=== PATIENT | male | born 1960 | race Caucasian/White ===

== ENCOUNTER 2016-10-23 14:44 | Emergency (ER) | payer BC ==
--- NOTE | 2016-10-23 15:18 | EDM.PDOC ---
ED HISTORY OF PRESENT ILLNESS - General Chief Complaint: Fever Stated Complaint: DEHYDRATION, DIARRHEA Time Seen by Provider: 10/23/16 15:01 Source of Information: Reports: Patient History Limitations: Reports: No limitations - History of Present Illness INITIAL COMMENTS - FREE TEXT/NARRATIVE: Patient presents with fever, cough, dyspnea and fatigue. He thinks he may have aspirated fluid while coughing and choking 3 days ago. He also has had some diarrhea but no vomiting. 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 He was in hospital in [place] for a week with cellulitis and osteomyelitis and has been back home for two weeks currently on Ancef via PICC line tid. - Related Data Allergies/ADRs: Allergies Allergy/AdvReac Type Severity Reaction Status Date / Time No Known Drug Allergies Allergy Other Verified 10/21/16 15:29 Home Meds: Home Meds Calcium Carbonate [Tums] 500 mg PO BID 04/10/15 [History] Allopurinol 100 mg PO DAILY 05/27/15 [History] Albuterol [Proventil Neb Soln] 2.5 mg NEB QIDRT PRN 06/24/15 [History] Cholecalciferol (Vitamin D3) [Vitamin D3] 2,000 units PO DAILY 07/29/15 [History ] Denosumab [Xgeva] 120 mg SUBCUT ASDIRECTED 10/23/15 [History] Citalopram [Celexa] 20 mg PO DAILY@1200 09/09/16 [History] levETIRAcetam [Keppra] 500 mg PO BID 09/13/16 [History] Dexamethasone [Dexamethasone] 4 mg PO BID 09/15/16 [History] Omeprazole 20 mg PO ACBREAKFAST 09/15/16 [History] Magnesium Chloride [Mag Delay] 1 tab PO BID 09/27/16 [History] Ondansetron HCl [Zofran] 1 tab PO TID PRN 09/27/16 [History] Prochlorperazine [Compazine] 1 tab PO QID PRN 09/27/16 [History] Rivaroxaban [Xarelto] 20 mg PO WITHBREAKFAST 09/27/16 [History] amLODIPine [Norvasc] 5 mg PO DAILY 09/27/16 [History] Fludrocortisone [Florinef] 1 tab PO DAILY 10/23/16 [History] Heparin Sodium,Porcine/PF [Heparin IV Flush 100 Units/ml] 300 units IV ASDIRECTED PRN 10/23/16 [History] Insulin Aspart [NovoLOG] See Protocol SQ TIDMEALS PRN 10/23/16 [History] Potassium Chloride 10 meq PO TID 10/23/16 [History] ceFAZolin [Ancef] 2 gm IV TID 10/23/16 [History] guaiFENesin/Codeine Phosphate [Guaifenesin AC Cough Syrup] 10 ml PO Q4H PRN [History] hydrALAZINE [Apresoline] 25 mg PO DAILY 10/23/16 [History] Past Medical History HEENT History: Reports: Impaired vision Cardiovascular History: Reports: Blood clots/VTE/DVT, Hypertension Other Cardiovascular History: hypotension Respiratory History: Reports: None Other Respiratory History: HX BLOOD CLOTS AND PNEUMONIA Gastrointestinal History: Reports: None Genitourinary History: Reports: Acute renal failure, Renal disease, Other (see below) Other Genitourinary History: stents placed in Left kidney 2105 Musculoskeletal History: Reports: Fracture, Other (see below) Other Musculoskeletal History: fracture left leg due to cancerous tumor Neurological History: Reports: Headaches, chronic, Other (see below) Other Neuro History: large tumor on posterior lower head - Endocrine/Metabolic History: Reports: Obesity/BMI 30+ Hematologic History: Reports: Anemia, Blood transfusion(s) Immunologic History: Reports: Immunosuppression Oncologic (Cancer) History: Reports: Bone, Brain, Lung, Metastatic, Renal Other Oncologic History: Currently undergoing evaluation for change of therapy perhaps radiation, no longer opdivo anad no current oral chemo at this point - Past Surgical History Head Surgeries/Procedures: Reports: None Cardiovascular Surgical History: Reports: None Respiratory Surgical History: Reports: Lung Biopsies GI Surgical History: Reports: None Male Surgical History: Reports: Ureteral stent Other Male Surgeries/Procedures: Left Kidney stents placed x2 in past several weeks end of June, early 2015 Endocrine Surgical History: Reports: None Neurological Surgical History: Reports: None Musculoskeletal Surgical History: Reports: Other (see below) Other Musculoskeletal Surgeries/Procedures:: left leg cementing in place of where tumor was. recent infection in left lower leg with it being opened and cleaned out - Social & Family History - Family History Family Medical History: Noncontributory - Tobacco Use Smoking Status *Q: Never Smoker Second Hand Smoke Exposure: No - Caffeine Use Caffeine Use: Reports: None - Recreational Drug Use Recreational Drug Use: No ED ROS GENERAL - Review of Systems Review Of Systems: See Below Constitutional: Reports: fever, malaise, weakness, fatigue HEENT: Denies: Throat pain, Vision change Respiratory: Reports: shortness of breath, cough Cardiovascular: Denies: Chest pain, Lightheadedness, Syncope GI/Abdominal: Reports: Diarrhea. Denies: Abdominal pain, Constipation, Vomiting : Denies: discharge, dysuria Musculoskeletal: Reports: no symptoms, other (the left leg is healing nicely after open I and D and wound vac removal.) Skin: Denies: cyanosis, jaundice, mottled, pallor, diaphoresis Neurological: Denies: confusion, dizziness, headache, trouble speaking Psychiatric: Denies: Agitation, Anxiety, Confusion ED EXAM, GENERAL - Physical Exam Exam: See Below Exam Limited By: No limitations General Appearance: alert, WD/WN, no apparent distress Eye Exam: bilateral eye: EOMI, normal inspection, PERRL Ears: normal external exam, hearing grossly normal Ear Exam: right ear: canal normal (left is occluded with cerumen) Nose: normal inspection, no blood Throat/Mouth: Normal inspection, Normal lips, Normal oropharynx, Normal voice, No airway compromise Head: atraumatic, normocephalic Neck: normal inspection, supple, non-tender, full range of motion Respiratory/Chest: no accessory muscle use, decreased breath sounds (mildly in right base), crackles (bilat bases and middle cabrera), wheezing (moderate on right; mild on left). No: stridor Cardiovascular: no edema, no gallop, no JVD, no murmur, tachycardia (regular) GI/Abdominal: no distention Back Exam: full range of motion Extremities: normal range of motion, no pedal edema. No: mottled, pallor, redness Neurological: alert, oriented, normal cognition, no motor/sensory deficits Psychiatric: normal affect, normal mood Skin Exam: Warm, Dry, Intact, Normal color, No rash Course - Vital Signs Last Recorded V/S: Last Vital Signs Temp 101 F H 10/23/16 14:59 Pulse 119 H 10/23/16 14:59 Resp 16 10/23/16 14:59 BP 113/69 10/23/16 14:59 Pulse Ox 95 10/23/16 14:59 - Orders/Labs/Meds Orders: Active Orders 24 hr Category Date Time Status Chest 2V [CR] Stat Exams 10/23/16 15:11 Ordered Chest w Cont [CT] Stat Exams 10/23/16 16:01 Ordered CBC WITH AUTO DIFF [HEME] Stat Lab 10/23/16 15:11 Ordered COMPREHENSIVE METABOLIC PN,CMP [CHEM] Stat Lab 10/23/16 15:11 Ordered CULTURE BLOOD [BC] Stat Lab 10/23/16 15:12 Ordered CULTURE BLOOD [BC] Stat Lab 10/23/16 15:12 Ordered LACTIC ACID [CHEM] Stat Lab 10/23/16 15:11 Ordered Blood Culture x2 Reflex Set [OM.PC] Stat Oth 10/23/16 15:11 Ordered - Re-Assessments/Exams Free Text/Narrative Re-Assessment/Exam: 10/23/16 16:03 CXR report shows more prominent perihilar masses and adenopathy that comparison 6 weeks ago. Atelectasis suggesting possible emboli. Radiologist suggests considering CT. Will wait on kidney function results prior to initiation of dye. 10/23/16 18:54 Had some difficulties with IV access and failures resulting in inadequate IV size for contrast infusion speeds. Radiologist says the test is indeterminate for PE but found right lung infiltrate, 20% increased size of mediastinal lymph node from comparison 3 months ago, now measuring 2 cm in diameter. Discussed this with patient and his family and will transfer to [place] for further evaluation and treatment. Discussed with ER doc at [facility] who felt direct admission to [facility] would be appropriate. Dr. May accepted patient for transfer and they will call with bed placement shortly. Departure - Departure Time of Disposition: 19:08 Disposition: DC/Tfer to Acute Hospital 02 Condition: fair Clinical Impression: HCAP (healthcare-associated pneumonia), Lung cancer, middle lobe, Cancer of brain treated with radiation therapy, Hypoxemia, Brain metastases Dyspnea Qualifiers: Dyspnea type: shortness of breath Qualified Code(s): R06.02 - Shortness of breath Forms: ED Department Discharge - My Orders Last 24 Hours: My Active Orders 10/23/16 15:11 Chest 2V [CR] Stat CBC WITH AUTO DIFF [HEME] Stat COMPREHENSIVE METABOLIC PN,CMP [CHEM] Stat LACTIC ACID [CHEM] Stat Blood Culture x2 Reflex Set [OM.PC] Stat 10/23/16 15:12 CULTURE BLOOD [BC] Stat CULTURE BLOOD [BC] Stat 10/23/16 16:01 Chest w Cont [CT] Stat - Assessment/Plan Last 24 Hours: My Active Orders 10/23/16 15:11 Chest 2V [CR] Stat CBC WITH AUTO DIFF [HEME] Stat COMPREHENSIVE METABOLIC PN,CMP [CHEM] Stat LACTIC ACID [CHEM] Stat Blood Culture x2 Reflex Set [OM.PC] Stat 10/23/16 15:12 CULTURE BLOOD [BC] Stat CULTURE BLOOD [BC] Stat 10/23/16 16:01 Chest w Cont [CT] Stat
[2016-10-23] MEDS ORDERED: Sodium Chloride 0.9% 1,000 ML IV ONE (16:07)
[2016-10-23] MEDS ORDERED: Albuterol 0.083% 2.5 MG/3 ML Neb Soln NEB ONE (16:15)
[2016-10-23 16:35] LABS: CHLORIDE,CL 105 mmol/L (98-115); SODIUM,NA 138 mmol/L (136-145)
[2016-10-23] MEDS ORDERED: Sodium Chloride 0.9% 50 ML SDV IV ONE (16:56)
[2016-10-23] MEDS ORDERED: Iopamidol 755 Mg/ML 75 ML Bottle IV ONE (16:56)
[2016-10-23] MEDS ORDERED: Acetaminophen 325 MG Tab PO ONE (17:47)
[2016-10-23] MEDS ORDERED: Levofloxacin/Dextrose 5%-Water 500 MG in Premix Bag 1 BAG IV ONE (19:02)
[2016-10-23 19:32] VITALS: BP 107/62
[2016-10-25] MEDS ORDERED: Iopamidol 755 Mg/ML 75 ML Bottle IVPUSH ONE (08:14)
[2016-10-25] MEDS ORDERED: Sodium Chloride 0.9% 50 ML SDV FLUSH SCH (08:15)
== END 2016-10-23 19:45 ==
LOC: KA.ED 14:44
DX: J18.9 Pneumonia, unspecified organism (principal); Y95 Nosocomial condition; C34.2 Malignant neoplasm of middle lobe, bronchus or lung; R09.02 Hypoxemia; Z79.899 Other long term (current) drug therapy
CPT/HCPCS: 36415; 71020; 71260; 80053; 83605; 85025; 87040; 94640; 96361; 96365; 99285; J1956; J7030; J7620; Q9967

== ENCOUNTER 2016-11-08 16:05 | Inpatient (IN) | payer BC ==
[2016-11-08] MEDS ORDERED: Albuterol/Ipratropium 3.0-0.5 MG/3 ML Neb Soln NEB ONE (16:43)
--- NOTE | 2016-11-08 16:50 | EDM.PDOC ---
Addendum entered and electronically signed by Mauri Bowers PA 11/08/16 17:27 : ASSESSMENT: PNEUMONIA PLAN: ADMIT TO INPATIENT / DR HUSSEIN'S SERVICE Original Note: ED HISTORY OF PRESENT ILLNESS - General Chief Complaint: Respiratory Problem Stated Complaint: PNEUMONIA Time Seen by Provider: 11/08/16 16:34 Source of Information: Reports: Patient, Family, Nurse First Aid History Limitations: Reports: No limitations - History of Present Illness INITIAL COMMENTS - FREE TEXT/NARRATIVE: PT PRESENTS WITH C/O SOB, PNEUMONIA DIAGNOSED WITH PCP AT [facility] AND DISCHARGED TODAY. BECAME WEAK ON WAY HOME AND FAMILY BROUGHT TO ER. H/O OF BRAIN CA. Timing/Duration: Reports: Day(s):, Getting worse Improves with: Reports: None Worsens with: Reports: None Associated Symptoms (General): Reports: cough, cough w sputum, fever/chills, loss of appetite, malaise, shortness of breath, weakness - Related Data Allergies/ADRs: Allergies Allergy/AdvReac Type Severity Reaction Status Date / Time No Known Drug Allergies Allergy Other Verified 11/08/16 16:19 Home Meds: Home Meds Calcium Carbonate [Tums] 500 mg PO BID 04/10/15 [History] Allopurinol 100 mg PO DAILY 05/27/15 [History] Cholecalciferol (Vitamin D3) [Vitamin D3] 2,000 units PO DAILY 07/29/15 [History ] Citalopram [Celexa] 20 mg PO DAILY@1200 09/09/16 [History] levETIRAcetam [Keppra] 500 mg PO BID 09/13/16 [History] Omeprazole 20 mg PO ACBREAKFAST 09/15/16 [History] Magnesium Chloride [Mag Delay] 1 tab PO BID 09/27/16 [History] Ondansetron HCl [Zofran] 1 tab PO TID PRN 09/27/16 [History] Prochlorperazine [Compazine] 1 tab PO QID PRN 09/27/16 [History] Rivaroxaban [Xarelto] 20 mg PO WITHBREAKFAST 09/27/16 [History] amLODIPine [Norvasc] 5 mg PO DAILY 09/27/16 [History] Fludrocortisone [Florinef] 1 tab PO DAILY 10/23/16 [History] Insulin Aspart [NovoLOG] See Protocol SQ TIDMEALS PRN 10/23/16 [History] ceFAZolin [Ancef] 2 gm IV TID 10/23/16 [History] guaiFENesin/Codeine Phosphate [Guaifenesin AC Cough Syrup] 10 ml PO Q4H PRN [History] hydrALAZINE [Apresoline] 25 mg PO DAILY 10/23/16 [History] 0.9 % Sodium Chloride [Sodium Chloride] 10 ml IVPUSH DAILY PRN 11/08/16 [History ] Albuterol Sulfate [Proair Hfa] 2 puff INH Q4H 11/08/16 [History] Albuterol/Ipratropium [DuoNeb 3.0-0.5 MG/3 ML] 3 ml NEB Q6HRRT 11/08/16 [History ] Diltiazem [Cardizem] 30 mg PO Q6HR 11/08/16 [History] Heparin Sodium,Porcine/PF [Heparin 500 Unit/5 ml (100/ml)] 300 unit IVPUSH DAILY PRN 11/08/16 [History] LORazepam [Ativan] 1 mg PO Q4H PRN 11/08/16 [History] Metoprolol Tartrate [Lopressor] 50 mg PO BID 11/08/16 [History] Prednisone [IMW: predniSONE] 40 mg PO WITHBREAKFAST 11/08/16 [History] Sulfamethoxazole/Trimethoprim [Bactrim 400-80 MG] 3 each PO TID 11/08/16 [ History] Sulfamethoxazole/Trimethoprim [Bactrim Ds Tablet] 1 each PO DAILY 11/08/16 [ History] Past Medical History HEENT History: Reports: Impaired vision Cardiovascular History: Reports: Blood clots/VTE/DVT, Hypertension Other Cardiovascular History: hypotension Respiratory History: Reports: None Other Respiratory History: HX BLOOD CLOTS AND PNEUMONIA Gastrointestinal History: Reports: None Genitourinary History: Reports: Acute renal failure, Renal disease, Other (see below) Other Genitourinary History: stents placed in Left kidney 2105 Musculoskeletal History: Reports: Fracture, Other (see below) Other Musculoskeletal History: fracture left leg due to cancerous tumor Neurological History: Reports: Headaches, chronic, Other (see below) Other Neuro History: large tumor on posterior lower head - Endocrine/Metabolic History: Reports: Obesity/BMI 30+ Hematologic History: Reports: Anemia, Blood transfusion(s) Immunologic History: Reports: Immunosuppression Oncologic (Cancer) History: Reports: Bone, Brain, Lung, Metastatic, Renal Other Oncologic History: Currently undergoing evaluation for change of therapy perhaps radiation, no longer opdivo anad no current oral chemo at this point - Past Surgical History Head Surgeries/Procedures: Reports: None Cardiovascular Surgical History: Reports: None Respiratory Surgical History: Reports: Lung Biopsies GI Surgical History: Reports: None Male Surgical History: Reports: Ureteral stent Other Male Surgeries/Procedures: Left Kidney stents placed x2 in past several weeks end of June, early 2015 Endocrine Surgical History: Reports: None Neurological Surgical History: Reports: None Musculoskeletal Surgical History: Reports: Other (see below) Other Musculoskeletal Surgeries/Procedures:: left leg cementing in place of where tumor was. recent infection in left lower leg with it being opened and cleaned out - Social & Family History - Family History Family Medical History: Noncontributory - Tobacco Use Smoking Status *Q: Never Smoker Second Hand Smoke Exposure: No - Caffeine Use Caffeine Use: Reports: None - Recreational Drug Use Recreational Drug Use: No ED ROS GENERAL - Review of Systems Review Of Systems: ROS reveals no pertinent complaints other than HPI. Constitutional: Reports: fever, chills, malaise, weakness, decreased appetite HEENT: Reports: No symptoms Respiratory: Reports: shortness of breath, wheezing, cough, sputum Cardiovascular: Reports: No symptoms Endocrine: Reports: no symptoms GI/Abdominal: Reports: No symptoms : Reports: no symptoms Musculoskeletal: Reports: no symptoms Skin: Reports: no symptoms Neurological: Reports: weakness Psychiatric: Reports: No symptoms Hematologic/Lymphatic: Reports: no symptoms Immunologic: Reports: no symptoms ED EXAM, GENERAL - Physical Exam Exam: See Below Exam Limited By: No limitations General Appearance: alert, no apparent distress, lethargic Eye Exam: bilateral eye: normal inspection Nose: normal inspection, normal mucosa, no blood Throat/Mouth: Normal inspection, Normal oropharynx, No airway compromise Head: atraumatic, normocephalic Neck: normal inspection, supple Respiratory/Chest: no respiratory distress, wheezing Cardiovascular: regular rate, rhythm, no murmur GI/Abdominal: normal bowel sounds, soft, non tender Back Exam: normal inspection. No: CVA tenderness (L), CVA tenderness (R) Extremities: pedal edema (2+ BILAT) Neurological: alert, oriented, normal cognition Psychiatric: flat affect Skin Exam: Warm, Dry, Intact, Normal color, No rash Lymphatic: no adenopathy Course - Vital Signs Last Recorded V/S: Last Vital Signs Temp 97.8 F 11/08/16 16:13 Pulse 96 11/08/16 16:13 Resp 24 H 11/08/16 16:13 BP 119/72 11/08/16 16:13 Pulse Ox 87 L 11/08/16 16:13 - Orders/Labs/Meds Orders: Active Orders 24 hr Category Date Time Status RT Aerosol Therapy [RC] ASDIRECTED Care 11/08/16 16:44 Ordered Chest 2V [CR] Stat Exams 11/08/16 16:42 Ordered CBC WITH AUTO DIFF [HEME] Stat Lab 11/08/16 16:42 Ordered COMPREHENSIVE METABOLIC PN,CMP [CHEM] Stat Lab 11/08/16 16:42 Ordered INR,PT,PROTHROMBIN TIME [COAG] Stat Lab 11/08/16 16:42 Ordered MAGNESIUM [CHEM] Stat Lab 11/08/16 16:42 Ordered PTT,PARTIAL THROMBOPLSTIN TIME [COAG] Stat Lab 11/08/16 16:42 Ordered UA W/MICROSCOPIC [URIN] Stat Lab 11/08/16 16:42 Uncollected Albuterol/Ipratropium [DuoNeb 3.0-0.5 MG/3 ML] Med 11/08/16 16:43 Once 3 ml NEB ONETIME ONE - Re-Assessments/Exams Free Text/Narrative Re-Assessment/Exam: 11/08/16 16:[address] HUSSEIN AND MAURI OSHEA FROM 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 Qualifiers: Laterality: right Lung location: unspecified part of lung Qualified Code(s): B59 - Pneumocystosis Brain cancer Qualifiers: Malignant neoplasm of brain location: unspecified location Qualified Code(s): C71.9 - Malignant neoplasm of brain, unspecified Forms: ED Department Discharge - My Orders Last 24 Hours: My Active Orders 11/08/16 16:42 Chest 2V [CR] Stat CBC WITH AUTO DIFF [HEME] Stat COMPREHENSIVE METABOLIC PN,CMP [CHEM] Stat INR,PT,PROTHROMBIN TIME [COAG] Stat MAGNESIUM [CHEM] Stat PTT,PARTIAL THROMBOPLSTIN TIME [COAG] Stat UA W/MICROSCOPIC [URIN] Stat 11/08/16 16:43 Albuterol/Ipratropium [DuoNeb 3.0-0.5 MG/3 ML] 3 ml NEB ONETIME ONE 11/08/16 16:44 RT Aerosol Therapy [RC] ASDIRECTED - Assessment/Plan Last 24 Hours: My Active Orders 11/08/16 16:42 Chest 2V [CR] Stat CBC WITH AUTO DIFF [HEME] Stat COMPREHENSIVE METABOLIC PN,CMP [CHEM] Stat INR,PT,PROTHROMBIN TIME [COAG] Stat MAGNESIUM [CHEM] Stat PTT,PARTIAL THROMBOPLSTIN TIME [COAG] Stat UA W/MICROSCOPIC [URIN] Stat 11/08/16 16:43 Albuterol/Ipratropium [DuoNeb 3.0-0.5 MG/3 ML] 3 ml NEB ONETIME ONE 11/08/16 16:44 RT Aerosol Therapy [RC] ASDIRECTED
[2016-11-08 17:22] LABS: CHLORIDE,CL 104 mmol/L (98-115); SODIUM,NA 137 mmol/L (136-145)
[2016-11-08] MEDS ORDERED: ceFAZolin 1 GM Vial IVPUSH ONE (17:26)
[2016-11-08] MEDS ORDERED: Codeine/guaiFENesin 100mg-10 MG/5 ML Syrup 10 ML Cup PO PRN (20:50)
[2016-11-08] MEDS ORDERED: Ondansetron 4 MG Tab.DIS PO PRN (20:50)
[2016-11-08] MEDS ORDERED: Metoprolol Tartrate 50 MG Tab PO SCH (21:00)
[2016-11-08] MEDS ORDERED: CEFAZOLIN 2 GM IV SCH (21:00)
[2016-11-08] MEDS ORDERED: Albuterol HFA 18 Gm Inhaler INH SCH (21:00)
[2016-11-08] MEDS ORDERED: Levofloxacin/Dextrose 5%-Water 500 MG in Premix Bag 1 BAG IV ONE (21:33)
[2016-11-08] MEDS ORDERED: levETIRAcetam 500 MG/5 ML SDV ONE (22:15)
[2016-11-08] MEDS: Calcium Carbonate 500 MG Tab.Chew PO SCH (22:52)
[2016-11-08] MEDS: Albuterol/Ipratropium 3.0-0.5 MG/3 ML Neb Soln NEB SCH (22:53)
[2016-11-08] MEDS: Magnesium Chloride 64 MG Tab.ER PO SCH (22:56)
[2016-11-09] MEDS ORDERED: Albuterol HFA 18 Gm Inhaler INH PRN (00:09)
[2016-11-09] MEDS: levETIRAcetam 500 MG Tab PO SCH ×3 (00:13→20:47)
[2016-11-09] MEDS: LORazepam 0.5 MG Tab PO PRN ×4 (03:33→22:12)
[2016-11-09] MEDS: Albuterol/Ipratropium 3.0-0.5 MG/3 ML Neb Soln NEB SCH ×4 (05:50→22:10)
[2016-11-09] MEDS ORDERED: Morphine 2 MG/ML Syringe IVPUSH PRN (07:48)
[2016-11-09] MEDS: Omeprazole 20 MG Cap.CR PO SCH (07:52)
[2016-11-09] MEDS ORDERED: Rivaroxaban 10 MG Tab PO SCH (08:00)
[2016-11-09] MEDS ORDERED: Sulfamethoxazole/Trimethoprim 800-160 MG Tab PO SCH (09:00)
[2016-11-09] MEDS ORDERED: hydrALAZINE 25 MG Tab PO SCH (09:00)
[2016-11-09] MEDS ORDERED: amLODIPine 5 MG Tab PO SCH (09:00)
[2016-11-09] MEDS: Rivaroxaban 10 MG Tab PO SCH (09:04)
[2016-11-09] MEDS: Cholecalciferol (Vitamin D3) 1,000 Unit Tab PO SCH (09:05)
[2016-11-09] MEDS: Calcium Carbonate 500 MG Tab.Chew PO SCH ×2 (09:05→20:48)
[2016-11-09] MEDS: Citalopram 20 MG Tab PO SCH (09:06)
[2016-11-09] MEDS: Allopurinol 100 MG Tab PO SCH (09:06)
[2016-11-09] MEDS: predniSONE 20 MG Tab PO SCH (09:06)
[2016-11-09] MEDS: Fludrocortisone 0.1 MG Tab PO SCH (11:41)
[2016-11-09] MEDS: Magnesium Chloride 64 MG Tab.ER PO SCH ×2 (11:42→20:48)
--- NOTE | 2016-11-09 12:34 | PCM.HP ---
H&P History of Present Illness - General Date of Service: 11/09/16 Source of Information: Patient, Old records, Provider, RN History Limitations: Reports: No limitations - History of Present Illness Initial Comments - Free Text/Narative: This 56-year-old gentleman came to the ED due to ongoing shortness of breath. Patient was recently diagnosed with pneumonia/PCP at [facility] and he became quite weak with shortness of breath on the way home. 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 The patient recently had left ankle osteomyelitis with wound dehiscent and status post open reduction internal fixation by Dr. 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 Hardware remains however he is on Ancef. 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 He had metastasis in the lymph nodes, lungs, skeleton. Later on he developed brain metastasis on September 09, 2016. He has completed a course of whole brain radiation. He was on nivolumab for his CA but this has been discontinued. He had evidence of this cancer progression. He did receive the 27th cycle of nivolumab on October 21, 2016 here at [facility]; and was receiving Denosumab every 4 weeks. On October 23, 2016, he became very dyspneic. He was brought to the emergency room here in [place] and transferred to [place]. The cause of the dyspnea seemed to be pneumonia. He had CT scan of the chest on October 25, 2016 showing no pulmonary embolism. There was a questionable finding of a clot in superior vena cava. There was worsening metastatic disease in the mediastinum. There was a metastatic lesion in T1, which appeared to be more pronounced. There were multiple nodules, which have increased since prior examination in the left upper and lower lobe. There were also irregular patchy infiltrates present in the right lung consistent with pneumonia which was eventually dx as Pneumocystis --and then placed on Bactrim. While in [place] he was being followed closely by his oncologist Dr Sanchez and eventually the patient/family decided they wanted to leave [facility] and be closer to home here in [place]. - Related Data Allergies/Adverse Reactions: Allergies Allergy/AdvReac Type Severity Reaction Status Date / Time No Known Drug Allergies Allergy Other Verified 11/08/16 16:19 Home Medications: Home Meds Calcium Carbonate [Tums] 500 mg PO BID 04/10/15 [History] Allopurinol 100 mg PO DAILY 05/27/15 [History] Cholecalciferol (Vitamin D3) [Vitamin D3] 2,000 units PO DAILY 07/29/15 [History ] Citalopram [Celexa] 20 mg PO DAILY 09/09/16 [History] levETIRAcetam [Keppra] 500 mg PO BID 09/13/16 [History] Omeprazole 20 mg PO ACBREAKFAST 09/15/16 [History] Magnesium Chloride [Mag Delay] 64 mg PO BID 09/27/16 [History] Ondansetron HCl [Zofran] 8 mg PO TID PRN 09/27/16 [History] Prochlorperazine [Compazine] 10 mg PO QID PRN 09/27/16 [History] Rivaroxaban [Xarelto] 20 mg PO WITHBREAKFAST 09/27/16 [History] amLODIPine [Norvasc] 5 mg PO DAILY 09/27/16 [History] Fludrocortisone [Florinef] 1 tab PO DAILY 10/23/16 [History] Insulin Aspart [NovoLOG] See Protocol SQ TIDMEALS PRN 10/23/16 [History] ceFAZolin [Ancef] 2 gm IV Q8H 10/23/16 [History] guaiFENesin/Codeine Phosphate [Guaifenesin AC Cough Syrup] 10 ml PO Q4H PRN [History] hydrALAZINE [Apresoline] 25 mg PO DAILY 10/23/16 [History] 0.9 % Sodium Chloride [Sodium Chloride] 10 ml IVPUSH DAILY PRN 11/08/16 [History ] Albuterol Sulfate [Proair Hfa] 2 puff INH Q4H 11/08/16 [History] Albuterol/Ipratropium [DuoNeb 3.0-0.5 MG/3 ML] 3 ml NEB Q6HRRT 11/08/16 [History ] Diltiazem [Cardizem] 30 mg PO Q6HR 11/08/16 [History] Heparin Sodium,Porcine/PF [Heparin 500 Unit/5 ml (100/ml)] 300 unit IVPUSH DAILY PRN 11/08/16 [History] LORazepam [Ativan] 1 mg PO Q4H PRN 11/08/16 [History] Metoprolol Tartrate [Lopressor] 50 mg PO BID 11/08/16 [History] Prednisone [IMW: predniSONE] 40 mg PO WITHBREAKFAST 11/08/16 [History] Sulfamethoxazole/Trimethoprim [Bactrim 400-80 MG] 3 each PO TID 11/08/16 [ History] Sulfamethoxazole/Trimethoprim [Bactrim Ds Tablet] 1 each PO DAILY 11/08/16 [ History] Past Medical History HEENT History: Reports: Impaired vision Cardiovascular History: Reports: Blood clots/VTE/DVT, Hypertension Other Cardiovascular History: hypotension Respiratory History: Reports: None Other Respiratory History: HX BLOOD CLOTS AND PNEUMONIA Gastrointestinal History: Reports: None Genitourinary History: Reports: Acute renal failure, Renal disease, Other (see below) Other Genitourinary History: stents placed in Left kidney 2105 Musculoskeletal History: Reports: Fracture, Other (see below) Other Musculoskeletal History: fracture left leg due to cancerous tumor Neurological History: Reports: Headaches, chronic, Other (see below) Other Neuro History: large tumor on posterior lower head - Psychiatric History: Reports: Anxiety, Depression Endocrine/Metabolic History: Reports: Diabetes, type II Hematologic History: Reports: Anemia, Blood transfusion(s) Immunologic History: Reports: Immunosuppression Oncologic (Cancer) History: Reports: Bone, Brain, Lung, Metastatic, Renal Other Oncologic History: Currently undergoing evaluation for change of therapy perhaps radiation, no longer opdivo anad no current oral chemo at this point - Past Surgical History Head Surgeries/Procedures: Reports: None Cardiovascular Surgical History: Reports: None Respiratory Surgical History: Reports: Lung Biopsies GI Surgical History: Reports: None Male Surgical History: Reports: Ureteral stent Other Male Surgeries/Procedures: Left Kidney stents placed x2 in past several weeks end of June, early 2015 Endocrine Surgical History: Reports: None Neurological Surgical History: Reports: None Musculoskeletal Surgical History: Reports: Other (see below) Other Musculoskeletal Surgeries/Procedures:: left leg cementing in place of where tumor was. recent infection in left lower leg with it being opened and cleaned out - Social & Family History - Family History Family Medical History: Noncontributory - Tobacco Use Smoking Status *Q: Never Smoker Second Hand Smoke Exposure: No - Caffeine Use Caffeine Use: Reports: None - Recreational Drug Use Recreational Drug Use: No H&P Review of Systems - Review of Systems: Review Of Systems: See Below General: Reports: malaise, weakness, decreased appetite. Denies: fever HEENT: Reports: no symptoms Pulmonary: Reports: Shortness of Breath, Cough, Sputum Cardiovascular: Reports: dyspnea on exertion. Denies: chest pain, blood pressure problem Gastrointestinal: Reports: Decreased appetite. Denies: Constipation, Diarrhea, Difficulty swallowing, Distension Genitourinary: Reports: no symptoms Musculoskeletal: Reports: leg pain Skin: Reports: no symptoms Psychiatric: Reports: mood lability Neurological: Reports: Difficulty Walking, Weakness. Denies: Confusion, Trouble Speaking Hematologic/Lymphatic: Reports: easy bruising Immunologic: Reports: no symptoms Exam - Exam Exam: See Below - Vital Signs Vital Signs: Last Vital Signs Temp 97.1 F 11/09/16 07:00 Pulse 114 H 11/09/16 07:00 Resp 24 H 11/09/16 07:00 BP 115/78 11/09/16 07:00 Pulse Ox 92 L 11/09/16 07:00 Weight: 195 lb 6.4 oz - Exam Quality Assessment: supplemental oxygen General: alert, oriented, cooperative, mild distress HEENT: No: Mucosa moist & pink Neck: supple. No: lymphadenopathy, JVD Lungs: Rhonchi Cardiovascular: normal S1, normal S2, tachycardia Abdomen: No: distention, guarding, rigidity, rebound (Male) Exam: Deferred Rectal (Males) Exam: Deferred Back Exam: No: CVA tenderness (L), CVA tenderness (R) Extremities: edema (mild upper extremity edema. ) Neurological: cranial nerves intact, reflexes equal bilateral Neuro Extensive - Mental Status: alert, oriented x3, normal mood/affect, normal cognition Psychiatric: alert, labile mood - Patient Data Lab Results last 24 hrs: Laboratory Results - last 24 hr 11/08/16 Range/Units 17:50 Specimen Type Urinvoid Urine Color Yellow (YELLOW) Urine Appearance Turbid H (CLEAR) Urine pH 5.5 (5.0-9.0) Ur Specific [place] 1.025 (1.005-1.030) Urine Protein 100 H (NEGATIVE) mg/dL Urine Glucose (UA) Negative (NEGATIVE) mg/dL Urine Ketones Negative (NEGATIVE) mg/dL Urine Occult Blood Large H (NEGATIVE) Urine Nitrite Negative (NEGATIVE) Urine Bilirubin Negative (NEGATIVE) Urine Urobilinogen 0.2 (0.2-1.0) E.U./dL Ur Leukocyte Esterase Negative (NEGATIVE) Urine RBC 40-50 H /HPF Urine WBC 0-5 /HPF Amorphous Sediment Few (0/HPF) /HPF Urine Bacteria Rare (NONE TO FEW) /HPF Result Diagrams: 11/08/16 16:55 11/08/16 16:55 *Q Meaningful Use (ADM) - VTE *Q VTE Criteria *Q: - Stroke *Q Stroke Criteria *Q: - AMI *Q AMI Criteria *Q: Problem List Initiated/Reviewed/Updated: Yes Orders Last 24hrs: Active Orders 24 hr Category Date Time Status Regular Diet [DIET] Diet 11/09/16 Breakfast Active CULTURE WOUND [RM] Routine Lab 11/08/16 17:45 Received Albuterol [Ventolin HFA] Med 11/09/16 00:09 Active 0 gm INH Q4HRRT PRN Albuterol/Ipratropium [DuoNeb 3.0-0.5 MG/3 ML] Med 11/08/16 23:00 Active 3 ml NEB Q6HRRT Allopurinol [Zyloprim] Med 11/09/16 09:00 Active 100 mg PO DAILY Calcium Carbonate [Tums] Med 11/08/16 21:00 Active 500 mg PO BID Cholecalciferol (Vitamin D3) [Vitamin D3] Med 11/09/16 09:00 Active 2,000 units PO DAILY Citalopram [Celexa] Med 11/09/16 09:00 Active 20 mg PO DAILY Codeine/guaiFENesin [Robitussin AC] Med 11/08/16 20:50 Active 10 ml PO Q4H PRN Fludrocortisone [Florinef] Med 11/09/16 09:00 Active 0.1 mg PO DAILY Heparin Sodium [Heparin Lock Flush 100 Units/ML Syringe Med 11/08/16 20:50 Active ] 300 units IVPUSH DAILY PRN LORazepam [Ativan] Med 11/08/16 20:50 Active 1 mg PO Q4H PRN Magnesium Chloride [Mag-64] Med 11/08/16 21:00 Active 64 mg PO BID Morphine Med 11/09/16 12:20 Ordered 1 mg IVPUSH Q4H PRN Omeprazole Med 11/09/16 07:00 Active 20 mg PO ACBREAKFAST Ondansetron [Zofran ODT] Med 11/08/16 20:50 Active 8 mg PO TID PRN Rivaroxaban [Xarelto] Med 11/09/16 08:00 Active 15 mg PO WITHBREAKFAST Sulfamethoxazole/Trimethoprim [Septra DS] Med 11/09/16 09:00 Active 1 tab PO DAILY ceFAZolin [Ancef] 2,000 mg Med 11/09/16 04:00 Active Sodium Chloride 0.9% [Normal Saline] 50 ml IV 0400,1200,2000 levETIRAcetam [Keppra] Med 11/08/16 21:00 Active 500 mg PO BID predniSONE Med 11/09/16 08:00 Active 40 mg PO WITHBREAKFAST Medication Orders Albuterol (Ventolin Hfa) 0 gm INH Q4HRRT PRN PRN Reason: Dyspnea Albuterol/Ipratropium (Duoneb 3.0-0.5 Mg/3 Ml) 3 ml NEB Q6HRRT [facility] Last Admin: 11/09/16 11:28 Dose: 3 ml Admin: 11/09/16 05:50 Dose: 3 ml Admin: 11/08/16 22:53 Dose: 3 ml Allopurinol (Zyloprim) 100 mg PO DAILY [facility] Last Admin: 11/09/16 09:06 Dose: 100 mg Calcium Carbonate/Glycine (Tums) 500 mg PO BID [facility] Last Admin: 11/09/16 09:05 Dose: 500 mg Admin: 11/08/16 22:52 Dose: 500 mg Cholecalciferol (Vitamin D3) 2,000 units PO DAILY [facility] Last Admin: 11/09/16 09:05 Dose: 2,000 units Citalopram Hydrobromide (Celexa) 20 mg PO DAILY [facility] Last Admin: 11/09/16 09:06 Dose: 20 mg Fludrocortisone Acetate (Florinef) 0.1 mg PO DAILY [facility] Last Admin: 11/09/16 11:41 Dose: 0.1 mg Guaifenesin/Codeine Phosphate (Robitussin Ac) 10 ml PO Q4H PRN PRN Reason: Cough Heparin Sodium (Porcine) (Heparin Lock Flush 100 Units/Ml Syringe) 300 units IVPUSH DAILY PRN PRN Reason: flush Last Admin: 11/08/16 23:30 Dose: 300 units Cefazolin Sodium 2,000 mg/ (Sodium Chloride) 50 mls @ 100 mls/hr IV 0400,1200, 2000 [facility] Last Admin: 11/09/16 11:40 Dose: 100 mls/hr Admin: 11/09/16 04:14 Dose: 100 mls/hr Levetiracetam (Keppra) 500 mg PO BID [facility] Last Admin: 11/09/16 11:42 Dose: 500 mg Admin: 11/09/16 00:13 Dose: 500 mg Lorazepam (Ativan) 1 mg PO Q4H PRN PRN Reason: Anxiety Last Admin: 11/09/16 07:53 Dose: 1 mg Admin: 11/09/16 03:33 Dose: 1 mg Magnesium Chloride (Mag-64) 64 mg PO BID [facility] Last Admin: 11/09/16 11:42 Dose: 64 mg Admin: 11/08/16 22:56 Dose: Not Given Morphine Sulfate (Morphine) 1 mg IVPUSH Q4H PRN PRN Reason: Agitation Omeprazole (Omeprazole) 20 mg PO ACBREAKFAST [facility] Last Admin: 11/09/16 07:52 Dose: 20 mg Ondansetron HCl (Zofran Odt) 8 mg PO TID PRN PRN Reason: Nausea Prednisone (Prednisone) 40 mg PO WITHBREAKFAST [facility] Last Admin: 11/09/16 09:06 Dose: 40 mg Rivaroxaban (Xarelto) 15 mg PO WITHBREAKFAST [facility] Last Admin: 11/09/16 09:04 Dose: 15 mg Trimethoprim/Sulfamethoxazole (Septra Ds) 1 tab PO DAILY [facility] Last Admin: 11/09/16 09:07 Dose: 1 tab Assessment/Plan Comment:: HISTORY OF PRESENT ILLNESS This 56-year-old gentleman came to the ED due to ongoing shortness of breath. Patient was recently diagnosed with pneumonia/PCP at [facility] and he became quite weak with shortness of breath on the way home. 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 The patient recently had left ankle osteomyelitis with wound dehiscent and status post open reduction internal fixation by Dr. 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 Hardware remains however he is on Ancef. 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 He had metastasis in the lymph nodes, lungs, skeleton. Later on he developed brain metastasis on September 09, 2016. He has completed a course of whole brain radiation. He was on nivolumab for his CA but this has been discontinued. He had evidence of this cancer progression. He did receive the 27th cycle of nivolumab on October 21, 2016 here at [facility]; and was receiving Denosumab every 4 weeks. On October 23, 2016, he became very dyspneic. He was brought to the emergency room here in [place] and transferred to [place]. The cause of the dyspnea seemed to be pneumonia. He had CT scan of the chest on October 25, 2016 showing no pulmonary embolism. There was a questionable finding of a clot in superior vena cava. There was worsening metastatic disease in the mediastinum. There was a metastatic lesion in T1, which appeared to be more pronounced. There were multiple nodules, which have increased since prior examination in the left upper and lower lobe. There were also irregular patchy infiltrates present in the right lung consistent with pneumonia which was eventually dx as Pneumocystis --and then placed on Bactrim. While in [place] he was being followed closely by his oncologist Dr Sanchez and eventually the patient/family decided they wanted to leave [facility] and be closer to home here in [place]. CODE STATUS DO NOT RESUSCITATE IMPRESSION/PLAN Pneumonia, Pneumocystis, He was started on TMP/SMX 3 tabs tid. When done with the Ancef on 11/22/16--will change to TMP/SMX DS 1 daily as prophylaxis for PCP and to control his MSSA. Resp Failure with Hypoxia, Oxygen support, duo nebs, Pleural effusion, right sided Renal CA; primary with mets to bone, lung, brain; terminal Left ankle osteomyelitis with wound dehiscent, S/P ORIF; Continue wet to dry dressings daily. Currently on Ancef until 11/22/16 Weakness, quite profound Hx of Pulmonary Embolism, on Xarelto Overall plan: Long discussion with family; they do desire to continue ongoing antibiotics to treat pneumonia and his osteomyelitis. Morphine for pain and difficult breathing, ICS.
[2016-11-09] MEDS: Morphine 2 MG/ML Syringe IVPUSH PRN ×2 (13:07→20:37)
[2016-11-09] MEDS: Furosemide 40 MG/4 ML VIAL IVPUSH SCH (13:07)
[2016-11-09] MEDS: Sulfamethoxazole/Trimethoprim 800-160 MG Tab PO SCH ×2 (14:17→20:48)
[2016-11-09] MEDS: Levofloxacin/Dextrose 5%-Water 100 ML IV SCH (14:18)
[2016-11-09] MEDS: Levofloxacin/Dextrose 5%-Water 50 ML IV SCH (15:26)
[2016-11-10] MEDS: Morphine 2 MG/ML Syringe IVPUSH PRN ×4 (02:24→19:25)
[2016-11-10] MEDS: Albuterol/Ipratropium 3.0-0.5 MG/3 ML Neb Soln NEB SCH ×4 (05:47→21:57)
[2016-11-10] MEDS: LORazepam 0.5 MG Tab PO PRN ×3 (06:05→17:13)
[2016-11-10] MEDS: Omeprazole 20 MG Cap.CR PO SCH (06:05)
[2016-11-10] MEDS: predniSONE 20 MG Tab PO SCH (09:27)
[2016-11-10] MEDS: Rivaroxaban 10 MG Tab PO SCH (09:28)
[2016-11-10] MEDS: Furosemide 40 MG/4 ML VIAL IVPUSH SCH (09:29)
[2016-11-10] MEDS: Citalopram 20 MG Tab PO SCH (09:30)
[2016-11-10] MEDS: levETIRAcetam 500 MG Tab PO SCH ×2 (09:30→21:34)
[2016-11-10] MEDS: Fludrocortisone 0.1 MG Tab PO SCH (09:30)
[2016-11-10] MEDS: Cholecalciferol (Vitamin D3) 1,000 Unit Tab PO SCH (09:31)
[2016-11-10] MEDS: Sulfamethoxazole/Trimethoprim 800-160 MG Tab PO SCH ×3 (09:31→21:35)
[2016-11-10] MEDS: Magnesium Chloride 64 MG Tab.ER PO SCH ×2 (09:31→21:34)
[2016-11-10] MEDS: Allopurinol 100 MG Tab PO SCH (09:32)
[2016-11-10] MEDS: Calcium Carbonate 500 MG Tab.Chew PO SCH ×2 (09:32→21:35)
--- NOTE | 2016-11-10 11:31 | PCM.PN ---
- General Info Date of Service: 11/10/16 Functional Status: Reports: pain controlled. Denies: tolerating diet, ambulating - Review of Systems General: Reports: Weakness, Fatigue. Denies: Appetite HEENT: Reports: no symptoms Pulmonary: Reports: shortness of breath (Slightly better on his shortness of breath today). Denies: cough Cardiovascular: Reports: Edema (Generalized edema) Gastrointestinal: Reports: Decreased appetite (Will take in oral fluids). Denies: Diarrhea, Difficulty swallowing, Nausea, Vomiting Genitourinary: Reports: no symptoms Neurological: Reports: Weakness. Denies: Confusion Psychiatric: Denies: confusion - Patient Data Vitals - most recent: Last Vital Signs Temp 97.7 F 11/10/16 05:03 Pulse 112 H 11/10/16 05:47 Resp 24 H 11/10/16 05:03 BP 119/84 11/10/16 05:03 Pulse Ox 98 11/10/16 05:47 Weight - most recent: 195 lb 6.4 oz I&O - last 24 hours: Intake & Output 11/09/16 11/10/16 11/10/16 22:59 06:59 14:59 Intake Total 450 100 Output Total 750 400 Balance -300 -300 Med Orders - Current: Current Medications Albuterol (Ventolin Hfa) 0 gm INH Q4HRRT PRN PRN Reason: Dyspnea Albuterol/Ipratropium (Duoneb 3.0-0.5 Mg/3 Ml) 3 ml NEB Q6HRRT [facility] Last Admin: 11/10/16 11:24 Dose: 3 ml Allopurinol (Zyloprim) 100 mg PO DAILY [facility] Last Admin: 11/10/16 09:32 Dose: 100 mg Calcium Carbonate/Glycine (Tums) 500 mg PO BID [facility] Last Admin: 11/10/16 09:32 Dose: 500 mg Cholecalciferol (Vitamin D3) 2,000 units PO DAILY [facility] Last Admin: 11/10/16 09:31 Dose: 2,000 units Citalopram Hydrobromide (Celexa) 20 mg PO DAILY [facility] Last Admin: 11/10/16 09:30 Dose: 20 mg Fludrocortisone Acetate (Florinef) 0.1 mg PO DAILY [facility] Last Admin: 11/10/16 09:30 Dose: 0.1 mg Furosemide (Lasix) 40 mg IVPUSH DAILY [facility] Last Admin: 11/10/16 09:29 Dose: 40 mg Guaifenesin/Codeine Phosphate (Robitussin Ac) 10 ml PO Q4H PRN PRN Reason: Cough Heparin Sodium (Porcine) (Heparin Lock Flush 100 Units/Ml Syringe) 300 units IVPUSH DAILY PRN PRN Reason: flush Last Admin: 11/10/16 09:33 Dose: 300 units Cefazolin Sodium 2,000 mg/ (Sodium Chloride) 50 mls @ 100 mls/hr IV 0400,1200, 2000 [facility] Last Admin: 11/10/16 03:50 Dose: 100 mls/hr Levofloxacin/Dextrose (Levaquin In D5w 500 Mg/100 Ml) 100 mls @ 100 mls/hr IV Q24H [facility] Last Admin: 11/09/16 14:18 Dose: 100 mls/hr Levofloxacin/Dextrose (Levaquin In D5w 250 Mg/50 Ml) 50 mls @ 50 mls/hr IV Q24H [facility] Last Admin: 11/09/16 15:26 Dose: 50 mls/hr Levetiracetam (Keppra) 500 mg PO BID [facility] Last Admin: 11/10/16 09:30 Dose: 500 mg Lorazepam (Ativan) 1 mg PO Q4H PRN PRN Reason: Anxiety Last Admin: 11/10/16 11:19 Dose: 1 mg Magnesium Chloride (Mag-64) 64 mg PO BID [facility] Last Admin: 11/10/16 09:31 Dose: 64 mg Morphine Sulfate (Morphine) 1 mg IVPUSH Q4H PRN PRN Reason: Agitation Last Admin: 11/10/16 09:39 Dose: 1 mg Omeprazole (Omeprazole) 20 mg PO ACBREAKFAST [facility] Last Admin: 11/10/16 06:05 Dose: 20 mg Ondansetron HCl (Zofran Odt) 8 mg PO TID PRN PRN Reason: Nausea Prednisone (Prednisone) 40 mg PO WITHBREAKFAST [facility] Last Admin: 11/10/16 09:27 Dose: 40 mg Rivaroxaban (Xarelto) 15 mg PO WITHBREAKFAST [facility] Last Admin: 11/10/16 09:28 Dose: 15 mg Trimethoprim/Sulfamethoxazole (Septra Ds) 1 tab PO TID [facility] Last Admin: 11/10/16 09:31 Dose: 1 tab Discontinued Medications Albuterol (Ventolin Hfa) 0 gm INH Q4HRRT [facility] Last Admin: 11/08/16 22:53 Dose: Not Given Albuterol/Ipratropium (Duoneb 3.0-0.5 Mg/3 Ml) 3 ml NEB ONETIME ONE Stop: 11/08/16 16:44 Last Admin: 11/08/16 17:04 Dose: 3 ml Amlodipine Besylate (Norvasc) 5 mg PO DAILY [facility] Cefazolin Sodium (Ancef) 2 gm IVPUSH ONETIME ONE Stop: 11/08/16 17:27 Last Admin: 11/08/16 19:21 Dose: 2 gm Diltiazem HCl (Cardizem) 30 mg PO Q6HR [facility] Hydralazine HCl (Apresoline) 25 mg PO DAILY [facility] Cefazolin Sodium 2,000 mg/ (Sodium Chloride) 50 mls @ 100 mls/hr IV Q8H [facility] Last Admin: 11/08/16 22:55 Dose: Not Given Levofloxacin/Dextrose 500 mg/ (Premix) 100 mls @ 100 mls/hr IV ONETIME ONE Stop: 11/08/16 22:32 Last Admin: 11/08/16 21:54 Dose: 100 mls/hr Levetiracetam (Keppra) Confirm Administered Dose 500 mg .ROUTE .STK-MED ONE Stop: 11/08/16 22:16 Last Admin: 11/08/16 22:54 Dose: Not Given Metoprolol Tartrate (Lopressor) 50 mg PO BID [facility] Last Admin: 11/09/16 00:16 Dose: Not Given Morphine Sulfate (Morphine) 0.5 mg IVPUSH Q4H PRN PRN Reason: Agitation Last Admin: 11/09/16 08:06 Dose: 0.5 mg Non-Formulary Medication (Cefazolin [Ancef]) 2 gm IV Q8H [facility] Last Admin: 11/09/16 00:16 Dose: Not Given Rivaroxaban (Xarelto) 20 mg PO WITHBREAKFAST [facility] Trimethoprim/Sulfamethoxazole (Septra Ds) 1 tab PO DAILY [facility] Last Admin: 11/09/16 09:07 Dose: 1 tab - Exam Quality Assessment: supplemental oxygen (Nonrebreather), central line/PICC ( Although PICC flushes not able to have blood return) General: alert, oriented, mild distress HEENT: Pupils equal Neck: supple Lungs: Decreased breath sounds Cardiovascular: Tachycardia Extremities: edema (Generalized edema) Wound/Incisions: drainage Psy/Mental Status: labile mood - Problem List Review Problem List Initiated/Reviewed/Updated: Yes - My Orders Last 24 Hours: My Active Orders 11/09/16 12:20 Morphine 1 mg IVPUSH Q4H PRN 11/09/16 12:45 Furosemide [Lasix] 40 mg IVPUSH DAILY 11/09/16 13:00 Levofloxacin/Dextrose 5%-Water [Levaquin in D5W 500 MG/100 ML] 100 ml IV Q24H 11/09/16 14:00 Levofloxacin/Dextrose 5%-Water [Levaquin in D5W 250 MG/50 ML] 50 ml IV Q24H - Plan Plan:: HISTORY OF PRESENT ILLNESS This 56-year-old gentleman came to the ED due to ongoing shortness of breath. Patient was recently diagnosed with pneumonia/PCP at [facility] and he became quite weak with shortness of breath on the way home. 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 The patient recently had left ankle osteomyelitis with wound dehiscent and status post open reduction internal fixation by Dr. 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 Hardware remains however he is on Ancef. 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 He had metastasis in the lymph nodes, lungs, skeleton. Later on he developed brain metastasis on September 09, 2016. He has completed a course of whole brain radiation. He was on nivolumab for his CA but this has been discontinued. He had evidence of this cancer progression. He did receive the 27th cycle of nivolumab on October 21, 2016 here at [facility]; and was receiving Denosumab every 4 weeks. On October 23, 2016, he became very dyspneic. He was brought to the emergency room here in [place] and transferred to [place]. The cause of the dyspnea seemed to be pneumonia. He had CT scan of the chest on October 25, 2016 showing no pulmonary embolism. There was a questionable finding of a clot in superior vena cava. There was worsening metastatic disease in the mediastinum. There was a metastatic lesion in T1, which appeared to be more pronounced. There were multiple nodules, which have increased since prior examination in the left upper and lower lobe. There were also irregular patchy infiltrates present in the right lung consistent with pneumonia which was eventually dx as Pneumocystis --and then placed on Bactrim. While in [place] he was being followed closely by his oncologist Dr Sanchez and eventually the patient/family decided they wanted to leave [facility] and be closer to home here in [place]. update: Patient had restless night with more diffculty breathing, Morphine was increased and this seemed to help. Patient not wanting to eat much however will drink fluids. PICC line patent but nurses report not being able to access blood. Lab was not able to get blood drawn today. CODE STATUS DO NOT RESUSCITATE IMPRESSION/PLAN Pneumonia, Pneumocystis, Will continue with TMP/SMX 3 tabs tid. When done with the Ancef on 11/22/16--will change to TMP/SMX DS 1 daily as prophylaxis for PCP and to control his MSSA. Resp Failure with Hypoxia, Oxygen support, duo nebs, POX adequate but patient more tachypnic. Pleural effusion, right sided, contributing to ongoing breathing difficulties but seems to be able to keep sats adequate. Generalized edema; more prounounced today; low nutrional status with low albumin contributing. Renal CA; primary with mets to bone, lung, brain; terminal Left ankle osteomyelitis with wound dehiscent, S/P ORIF; Continue wet to dry dressings daily. Currently on Ancef until 11/22/16 Weakness, quite profound Hx of Pulmonary Embolism, will keep Xarelto Overall plan: Long discussion with family; they do desire to continue ongoing antibiotics to treat pneumonia and his osteomyelitis. Morphine for pain and difficult breathing, ICS. Doubful if patient will survive hospital stay. Will attempt to draw labs tomorrow.
[2016-11-10] MEDS: Levofloxacin/Dextrose 5%-Water 100 ML IV SCH (13:22)
[2016-11-10] MEDS: Levofloxacin/Dextrose 5%-Water 50 ML IV SCH (14:44)
[2016-11-10] MEDS ORDERED: Glycopyrrolate 0.2 MG/ML 5 ML MDV PO PRN (15:59)
[2016-11-10] MEDS: LORazepam 2 MG/ML MDV IVPUSH PRN (21:59)
[2016-11-11] MEDS: Morphine 2 MG/ML Syringe IVPUSH PRN ×7 (00:05→22:12)
[2016-11-11] MEDS: Albuterol/Ipratropium 3.0-0.5 MG/3 ML Neb Soln NEB SCH ×6 (02:06→21:29)
[2016-11-11] MEDS: LORazepam 2 MG/ML MDV IVPUSH PRN ×5 (02:06→19:19)
[2016-11-11] MEDS: Omeprazole 20 MG Cap.CR PO SCH (06:11)
[2016-11-11] MEDS: predniSONE 20 MG Tab PO SCH (09:47)
[2016-11-11] MEDS: Fludrocortisone 0.1 MG Tab PO SCH (09:47)
[2016-11-11] MEDS: Citalopram 20 MG Tab PO SCH (09:47)
[2016-11-11] MEDS: Rivaroxaban 10 MG Tab PO SCH (09:47)
[2016-11-11] MEDS: Allopurinol 100 MG Tab PO SCH (09:48)
[2016-11-11] MEDS: Sulfamethoxazole/Trimethoprim 800-160 MG Tab PO SCH ×3 (09:48→20:18)
[2016-11-11] MEDS: levETIRAcetam 500 MG Tab PO SCH (09:48)
[2016-11-11] MEDS: Cholecalciferol (Vitamin D3) 1,000 Unit Tab PO SCH (09:48)
[2016-11-11] MEDS: Calcium Carbonate 500 MG Tab.Chew PO SCH (09:48)
[2016-11-11] MEDS: Magnesium Chloride 64 MG Tab.ER PO SCH (09:48)
[2016-11-11] MEDS: Furosemide 40 MG/4 ML VIAL IVPUSH SCH (09:59)
--- NOTE | 2016-11-11 10:56 | PCM.PN ---
- General Info Date of Service: 11/11/16 Subjective Update: Unable to perform ROS due to alt mental status Functional Status: Reports: pain controlled. Denies: tolerating diet, ambulating - Review of Systems General: Denies: Fever Systems Review Comment:: Unable to perform ROS due to alt mental status - Patient Data Vitals - most recent: Last Vital Signs Temp 99.5 F 11/11/16 06:19 Pulse 128 H 11/11/16 09:55 Resp 24 H 11/11/16 06:19 BP 102/48 L 11/11/16 06:19 Pulse Ox 96 11/11/16 09:55 Weight - most recent: 195 lb 6.4 oz I&O - last 24 hours: Intake & Output 11/10/16 11/11/16 11/11/16 22:59 06:59 14:59 Intake Total 350 0 Output Total 150 0 Balance 200 0 Terry Results last 24 hrs: Microbiology 11/08/16 17:45 Wound Culture - Final Ankle, Left Staphylococcus Coagulase Neg Med Orders - Current: Current Medications Acetaminophen (Tylenol) 650 mg RECTAL Q4H PRN PRN Reason: Fever Albuterol (Ventolin Hfa) 0 gm INH Q4HRRT PRN PRN Reason: Dyspnea Albuterol/Ipratropium (Duoneb 3.0-0.5 Mg/3 Ml) 3 ml NEB Q4HRRT [facility] Last Admin: 11/11/16 09:55 Dose: 3 ml Allopurinol (Zyloprim) 100 mg PO DAILY [facility] Last Admin: 11/11/16 09:48 Dose: Not Given Calcium Carbonate/Glycine (Tums) 500 mg PO BID [facility] Last Admin: 11/11/16 09:48 Dose: Not Given Cholecalciferol (Vitamin D3) 2,000 units PO DAILY [facility] Last Admin: 11/11/16 09:48 Dose: Not Given Citalopram Hydrobromide (Celexa) 20 mg PO DAILY [facility] Last Admin: 11/11/16 09:47 Dose: Not Given Fludrocortisone Acetate (Florinef) 0.1 mg PO DAILY [facility] Last Admin: 11/11/16 09:47 Dose: Not Given Furosemide (Lasix) 40 mg IVPUSH DAILY [facility] Last Admin: 11/11/16 09:59 Dose: Not Given Glycopyrrolate (Robinul) 1 mg PO TID PRN PRN Reason: Secretions Last Admin: 11/10/16 17:45 Dose: 1 mg Guaifenesin/Codeine Phosphate (Robitussin Ac) 10 ml PO Q4H PRN PRN Reason: Cough Heparin Sodium (Porcine) (Heparin Lock Flush 100 Units/Ml Syringe) 300 units IVPUSH DAILY PRN PRN Reason: flush Last Admin: 11/10/16 09:33 Dose: 300 units Cefazolin Sodium 2,000 mg/ (Sodium Chloride) 50 mls @ 100 mls/hr IV 0400,1200, 2000 [facility] Last Admin: 11/11/16 04:10 Dose: 100 mls/hr Levofloxacin/Dextrose (Levaquin In D5w 500 Mg/100 Ml) 100 mls @ 100 mls/hr IV Q24H [facility] Last Admin: 11/10/16 13:22 Dose: 100 mls/hr Levofloxacin/Dextrose (Levaquin In D5w 250 Mg/50 Ml) 50 mls @ 50 mls/hr IV Q24H [facility] Last Admin: 11/10/16 14:44 Dose: 50 mls/hr Levetiracetam (Keppra) 500 mg PO BID [facility] Last Admin: 11/11/16 09:48 Dose: Not Given Lorazepam (Ativan) 1 mg IVPUSH Q4H PRN PRN Reason: Agitation Last Admin: 11/11/16 10:18 Dose: 1 mg Magnesium Chloride (Mag-64) 64 mg PO BID [facility] Last Admin: 11/11/16 09:48 Dose: Not Given Morphine Sulfate (Morphine) 2 mg IVPUSH Q3H PRN PRN Reason: restlessness Last Admin: 11/11/16 08:05 Dose: 2 mg Omeprazole (Omeprazole) 20 mg PO ACBREAKFAST [facility] Last Admin: 11/11/16 06:11 Dose: Not Given Ondansetron HCl (Zofran Odt) 8 mg PO TID PRN PRN Reason: Nausea Last Admin: 11/10/16 15:03 Dose: 8 mg Prednisone (Prednisone) 40 mg PO WITHBREAKFAST [facility] Last Admin: 11/11/16 09:47 Dose: Not Given Rivaroxaban (Xarelto) 15 mg PO WITHBREAKFAST [facility] Last Admin: 11/11/16 09:47 Dose: Not Given Trimethoprim/Sulfamethoxazole (Septra Ds) 1 tab PO TID [facility] Last Admin: 11/11/16 09:48 Dose: Not Given Discontinued Medications Albuterol (Ventolin Hfa) 0 gm INH Q4HRRT [facility] Last Admin: 11/08/16 22:53 Dose: Not Given Albuterol/Ipratropium (Duoneb 3.0-0.5 Mg/3 Ml) 3 ml NEB ONETIME ONE Stop: 11/08/16 16:44 Last Admin: 11/08/16 17:04 Dose: 3 ml Albuterol/Ipratropium (Duoneb 3.0-0.5 Mg/3 Ml) 3 ml NEB Q6HRRT [facility] Last Admin: 11/10/16 11:24 Dose: 3 ml Amlodipine Besylate (Norvasc) 5 mg PO DAILY [facility] Cefazolin Sodium (Ancef) 2 gm IVPUSH ONETIME ONE Stop: 11/08/16 17:27 Last Admin: 11/08/16 19:21 Dose: 2 gm Diltiazem HCl (Cardizem) 30 mg PO Q6HR [facility] Hydralazine HCl (Apresoline) 25 mg PO DAILY [facility] Cefazolin Sodium 2,000 mg/ (Sodium Chloride) 50 mls @ 100 mls/hr IV Q8H [facility] Last Admin: 11/08/16 22:55 Dose: Not Given Levofloxacin/Dextrose 500 mg/ (Premix) 100 mls @ 100 mls/hr IV ONETIME ONE Stop: 11/08/16 22:32 Last Admin: 11/08/16 21:54 Dose: 100 mls/hr Levetiracetam (Keppra) Confirm Administered Dose 500 mg .ROUTE .STK-MED ONE Stop: 11/08/16 22:16 Last Admin: 11/08/16 22:54 Dose: Not Given Lorazepam (Ativan) 1 mg PO Q4H PRN PRN Reason: Anxiety Last Admin: 11/10/16 17:13 Dose: 1 mg Metoprolol Tartrate (Lopressor) 50 mg PO BID [facility] Last Admin: 11/09/16 00:16 Dose: Not Given Morphine Sulfate (Morphine) 0.5 mg IVPUSH Q4H PRN PRN Reason: Agitation Last Admin: 11/09/16 08:06 Dose: 0.5 mg Morphine Sulfate (Morphine) 1 mg IVPUSH Q4H PRN PRN Reason: Agitation Last Admin: 11/10/16 15:29 Dose: 1 mg Non-Formulary Medication (Cefazolin [Ancef]) 2 gm IV Q8H [facility] Last Admin: 11/09/16 00:16 Dose: Not Given Rivaroxaban (Xarelto) 20 mg PO WITHBREAKFAST [facility] Trimethoprim/Sulfamethoxazole (Septra Ds) 1 tab PO DAILY [facility] Last Admin: 11/09/16 09:07 Dose: 1 tab - Exam Quality Assessment: supplemental oxygen (Face mask with 6 liters O2. ), central line/PICC General: other (Family at bedside; state he is arousable verbally. ). No: alert , oriented Neck: no JVD Lungs: Decreased breath sounds, Other (some agonal breathing, diaphragmatic ) Cardiovascular: Regular Rhythm, Tachycardia. No: Regular Rate Abdomen: distension. No: rigidity Extremities: edema (generalized edema) Psy/Mental Status: No: alert, agitated - Problem List Review Problem List Initiated/Reviewed/Updated: Yes - My Orders Last 24 Hours: My Active Orders 11/10/16 15:59 Glycopyrrolate [Robinul] 1 mg PO TID PRN 11/10/16 17:17 Morphine 2 mg IVPUSH Q3H PRN 11/10/16 22:56 Acetaminophen [Tylenol] 650 mg RECTAL Q4H PRN - Plan Plan:: HISTORY OF PRESENT ILLNESS This 56-year-old gentleman came to the ED due to ongoing shortness of breath. Patient was recently diagnosed with pneumonia/PCP at [facility] and he became quite weak with shortness of breath on the way home. 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 The patient recently had left ankle osteomyelitis with wound dehiscent and status post open reduction internal fixation by Dr. 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 Hardware remains however he is on Ancef. 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 He had metastasis in the lymph nodes, lungs, skeleton. Later on he developed brain metastasis on September 09, 2016. He has completed a course of whole brain radiation. He was on nivolumab for his CA but this has been discontinued. He had evidence of this cancer progression. He did receive the 27th cycle of nivolumab on October 21, 2016 here at [facility]; and was receiving Denosumab every 4 weeks. On October 23, 2016, he became very dyspneic. He was brought to the emergency room here in [place] and transferred to [place]. The cause of the dyspnea seemed to be pneumonia. He had CT scan of the chest on October 25, 2016 showing no pulmonary embolism. There was a questionable finding of a clot in superior vena cava. There was worsening metastatic disease in the mediastinum. There was a metastatic lesion in T1, which appeared to be more pronounced. There were multiple nodules, which have increased since prior examination in the left upper and lower lobe. There were also irregular patchy infiltrates present in the right lung consistent with pneumonia which was eventually dx as Pneumocystis --and then placed on Bactrim. While in [place] he was being followed closely by his oncologist Dr Sanchez and eventually the patient/family decided they wanted to leave [facility] and be closer to home here in [place]. update: Patient much less responsive however will still speak; Breathing is better--seems more relaxed; Robinol given for excessive secretions; Remains on Oxygen mask, quite tachycardia today; still not able to get blood after multiple attempts; Family in room. CODE STATUS DO NOT RESUSCITATE IMPRESSION/PLAN Pneumonia, Pneumocystis, is not able to take oral medicatioin; Had been on TMP/ SMX 3 tabs tid. Resp Failure with Hypoxia, Oxygen support, duo nebs as needed; POX adequate but patient more tachypnic, labored with diaphermatic breathing. Pleural effusion, right sided, contributing to ongoing breathing difficulties but seems to be able to keep sats adequate. Generalized edema; more prounounced today; low nutrional status with low albumin contributing. Renal CA; primary with mets to bone, lung, brain; terminal Left ankle osteomyelitis with wound dehiscent, S/P ORIF; Continue wet to dry dressings daily. Currently on Ancef until 11/22/16 Hx of Pulmonary Embolism, discontine Xarelto Hx of Seizure: Will change to IV keppra as he is not taking PO meds. Overall plan: Long discussion with family; they do desire to continue ongoing antibiotics to treat pneumonia and his osteomyelitis. I will increase Morphine range dosing for pain and difficult breathing, change PO Keppra to IV; Change PO predinsone to IV to aid in sz precautions. Patient in grave condition-- however the family desires to continue treating the PCP pneumonia. Will attempt to draw labs tomorrow. hopefully we can obtain through PICC.
[2016-11-11] MEDS ORDERED: Glycopyrrolate 0.2 MG/ML 5 ML MDV IVPUSH PRN (11:22)
[2016-11-11] MEDS: Levofloxacin/Dextrose 5%-Water 100 ML IV SCH (14:45)
[2016-11-11] MEDS: Levofloxacin/Dextrose 5%-Water 50 ML IV SCH (16:31)
[2016-11-11 21:51] VITALS: BP 75/47
[2016-11-11] MEDS: Acetaminophen 325 MG Supp RECTAL PRN (21:59)
[2016-11-11] MEDS ORDERED: levETIRAcetam 500 MG in Sodium Chloride 0.9% 100 ML IV SCH (23:30)
[2016-11-11] MEDS ORDERED: levETIRAcetam 500 MG/5 ML SDV ONE (23:32)
[2016-11-12] MEDS: LORazepam 2 MG/ML MDV IVPUSH PRN ×2 (01:23→05:57)
[2016-11-12] MEDS: Albuterol/Ipratropium 3.0-0.5 MG/3 ML Neb Soln NEB SCH ×2 (01:28→05:30)
[2016-11-12] MEDS: Morphine 2 MG/ML Syringe IVPUSH PRN ×2 (02:33→04:26)
[2016-11-12] MEDS: Acetaminophen 325 MG Supp RECTAL PRN (04:43)
[2016-11-12] MEDS ORDERED: methylPREDNISolone Sodium Succinate 125 MG/2 ML SDV IVPUSH SCH (09:00)
--- NOTE | 2016-11-22 14:10 | DISCH ---
FINAL DIAGNOSES: 1. Primary renal cell carcinoma with metastasis to the bone, lungs, brain, terminal. 2. Osteomyelitis. 3. Profound weakness. 4. History of pulmonary embolism, on Xarelto. 5. Right pleural effusion. 6. Respiratory failure. 7. Possible Pneumocystis pneumonia. HOSPITAL COURSE AND TREATMENT: This pleasant 56-year-old gentleman with a known diagnosis was admitted after transfer from the [facility] and having been treated for Pneumocystis pneumonia. The patient has been battling left renal cell carcinoma with metastasis to multiple organs including the brain, lungs, and bone. After being admitted to the hospital, he was treated initially on antibiotics of Bactrim DS one tablet b.i.d. He was continued on Xarelto. He was also continued on the prednisone, Zofran, omeprazole to prevent gastric irritation, morphine for prevention of pain and for respiratory discomfort. He was treated magnesium chloride, Ativan, Keppra for antiseizure prophylaxis, cefazolin, guaifenesin and codeine for cough, he was also given Florinef 0.1 mg, citalopram 20 mg daily for depression, vitamin D3, calcium carbonate, allopurinol for hyperuricemia, and he was treated with DuoNeb treatments and albuterol as necessary. His hemoglobin was 8.9, white count 6.2, with normal electrolytes. BUN was 34, creatinine was 1.21. Glucose was 189. Albumin is low at 1.50. Over the course of the hospital stay, the patient's condition gradually deteriorated. He was kept comfortable with morphine and Ativan. Other medications were continued. He on 11/12/2016. The patient's family did not have any questions regarding his care or diagnosis. /[id number]/[id number]
== END 2016-11-12 07:20 | disposition expired | DRG 137 ==
LOC: KA.ED 16:05 → KA.MS 17:25
PROVIDERS: ADMIT Physician Assistant Surgical; ATTEND Nurse Practitioner Family
DX: B59 Pneumocystosis (principal); J96.91 Respiratory failure, unspecified with hypoxia; J90 Pleural effusion, not elsewhere classified; C64.9 Malignant neoplasm of unspecified kidney, except renal pelvis; C78.1 Secondary malignant neoplasm of mediastinum; C77.9 Secondary and unspecified malignant neoplasm of lymph node, unspecified; C78.00 Secondary malignant neoplasm of unspecified lung; C79.31 Secondary malignant neoplasm of brain; C79.51 Secondary malignant neoplasm of bone; M86.9 Osteomyelitis, unspecified; R53.1 Weakness; Z79.899 Other long term (current) drug therapy; Z66 Do not resuscitate
CPT/HCPCS: 51798; 71010; 80053; 81001; 83735; 85025; 85610; 85730; 87070; 87077; 94640; 99285; A9270-GY; J0690; J1642; J1940; J1953; J1956; J2060; J2270; J3490; J7050